=== PATIENT | male | born 1980 | race Caucasian/White ===

== ENCOUNTER 2024-05-22 07:02 | Outpatient (CLI) | payer MEDICAID ==
[~2024-05-22 07:02] MED LIST: GADOTERATE MEGLUMINE 7.5 MMOL/15 ML VIAL IV ONE; LIDOcaine 1% 30ml preserv. free vial ONE; LIDOcaine 1%/PF 5ML 10 MG/ML VIAL ONE; iohexol 300 MG/1 ML 50ml polymer ONE
== END 2024-05-22 23:59 | disposition home or self-care (01) ==
LOC: RAD 07:02 → EDSTATUS 07:30 → RAD 23:59
PROVIDERS: ATTEND Pediatrics Sports Medicine
DX: M25.511 Pain in right shoulder (principal); M25.512 Pain in left shoulder; R29.898 Other symptoms and signs involving the musculoskeletal system; S43.491A Other sprain of right shoulder joint, initial encounter; M19.011 Primary osteoarthritis, right shoulder; X58.XXXA Exposure to other specified factors, initial encounter; Y93.89 Activity, other specified; Y92.89 Other specified places as the place of occurrence of the external cause; Y99.8 Other external cause status
CPT/HCPCS: 73222; A9575; 23350; J2003; J3490; Q9967

== ENCOUNTER → 2024-12-28 | Outpatient (CLI) | payer MEDICAID ==
[~2024-12-28] MED LIST changes: -LIDOcaine 1% 30ml preserv. free vial ONE; -LIDOcaine 1%/PF 5ML 10 MG/ML VIAL ONE; -iohexol 300 MG/1 ML 50ml polymer ONE
--- NOTE | 2024-12-28 13:41 | RADIOLOGY REPORT ---
[facility] INDICATION: PINCHED CERVICAL NERVE COMPARISON: None TECHNIQUE: 5 views of the cervical spine were obtained. FINDINGS: The cervical vertebral alignment is normal. The predental space is normal. The intervertebral disc spaces are well-maintained. No significant facet arthropathy is noted. No acute fracture, vertebral compression deformity or aggressive osseous lesions. The imaged lung apices are unremarkable. IMPRESSION: No acute fracture.
--- NOTE | 2024-12-28 13:42 | RADIOLOGY REPORT ---
[facility] EXAMINATION: MR MRI HEAD INDICATION: FAMILY HISTORY OF MS AND OTH DIS OF THE NERVOUS SYS COMPARISON: None TECHNIQUE: Multiplanar, multisequence magnetic resonance imaging of the brain was performed without the use of i ntravenous contrast. FINDINGS: No evidence of acute or remote infarct. No intracranial hemorrhage. No mass effect. There is periventricular/deep white matter T2/FLAIR hyperintensity is nonspecific, but most commonly associated with chronic microvascular disease. The ventricles and sulci are normal in size for age. Clear basal cisterns. Flow voids in the major intracranial vessels are maintained. No abnormality of the orbits. Paranasal sinuses and mastoid air cells are clear. No abnormality of the visualized osseous structures and extracranial soft tissues. IMPRESSION: No acute infarct, intracranial hemorrhage, mass effect, or hydrocephalus.
== END | disposition home or self-care (01) ==
LOC: MRI 10:56
PROVIDERS: ATTEND Nurse Practitioner Occupational Health
DX: I67.89 Other cerebrovascular disease (principal); Z82.0 Family history of epilepsy and other diseases of the nervous system; G54.2 Cervical root disorders, not elsewhere classified
CPT/HCPCS: 70553; 72040; A9575